=== PATIENT | female | born 1970 | race Caucasian/White ===

== ENCOUNTER 2021-08-07 17:04 | Emergency (ER) | payer BC, OTHER ==
[~2021-08-07] VITALS: Ht 167.6 cm; Wt 70.0 kg
[2021-08-07] MEDS ORDERED: ADDE10CA3 PO (17:22)
[2021-08-07] MEDS ORDERED: WELLTAB40 PO (17:22)
[2021-08-07] MEDS ORDERED: XANA0.5T PO (17:22)
[2021-08-07] MEDS ORDERED: KETOROLAC TROMETHAMINE 10 MG TAB PO ONE (18:05)
[2021-08-07] MEDS ORDERED: CYCLOBENZAPRINE 5MG TABLET PO ONE (18:05)
[2021-08-07] MEDS ORDERED: CYCL5TAB PO (19:38)
[2021-08-07 19:45] VITALS: BP 169/97
== END 2021-08-07 19:45 | disposition home or self-care (01) ==
LOC: M ED 17:04
DX: M54.50 Low back pain, unspecified (principal); V49.50XA Passenger injured in collision with unspecified motor vehicles in traffic accident, initial encounter; F17.200 Nicotine dependence, unspecified, uncomplicated; F12.10 Cannabis abuse, uncomplicated; Z88.1 Allergy status to other antibiotic agents; Z88.2 Allergy status to sulfonamides; Y92.9 Unspecified place or not applicable; Y93.9 Activity, unspecified; Y99.9 Unspecified external cause status